=== PATIENT | female | born 1980 | race Hispanic/Latino ===

== ENCOUNTER 2018-04-22 22:41 | Emergency (ER) | payer BC ==
[2018-04-22] MEDS ORDERED: Sodium Chloride 0.9% 1,000 ML IV ONE (23:09)
[2018-04-22 23:21] LABS: BASO # 0.1 K/uL (0.0-0.2); EOS # 0.5 K/uL (0.0-0.7); EOS % 9.3 % (0.0-4.0); HEMOGLOBIN 13.7 g/dL (11.0-16.0); LYMPH # 2.1 K/uL (1.0-4.3); LYMPH % 38.5 % (20.0-40.0); MEAN CELL VOLUME 91.9 fL (81.0-99.0); MEAN CORPUSCULAR HGB CONC 34.8 g/dL (33.0-37.0); MEAN PLATELET VOLUME 10.1 fL (7.2-11.7); MONO # 0.5 K/uL (0.0-0.8); MONO % 8.6 % (0.0-10.0); NEUT # 2.3 K/uL (1.8-7.0); NEUT % 42.6 % (50.0-75.0); NRBC % 0.1 % (0.0-2.0); RBC 4.29 Mil/uL (3.80-5.20); RED CELL DISTRIBUTION WIDTH 12.3 % (11.5-14.5); WHITE BLOOD COUNT 5.4 K/uL (4.8-10.8)
[2018-04-22 23:29] LABS: INR 0.9; PROTHROMBIN TIME 10.1 SECONDS (9.7-12.2)
[2018-04-22] MEDS ORDERED: Sodium Chloride 0.9% 1,000 ML ONE (23:29)
[2018-04-22 23:33] LABS: GFR NON-AFRICAN AMERICAN > 60
[2018-04-22 23:36] LABS: ALB/GLOB RATIO 1.3 (1.0-2.1); ALBUMIN 3.9 g/dL (3.5-5.0); ALT/SGPT 28 U/L (9-52); AST/SGOT 47 U/L (14-36); BLOOD UREA NITROGEN 13 mg/dL (7-17)
[2018-04-22 23:36] LABS: SQUAMOUS EPITHIAL 8 /hpf (0-5); URINE AMORPHOUS SEDIMENT OCC /ul (<OCC); URINE BACTERIA RARE (<OCC); URINE BILIRUBIN NEGATIVE (NEGATIVE); URINE BLOOD NEGATIVE (NEGATIVE); URINE CLARITY Hazy (Clear); URINE COLOR Yellow (YELLOW); URINE GLUCOSE (UA) NORMAL (Normal); URINE LEUKOCYTE ESTERASE NEG Leu/uL (Negative); URINE PROTEIN NEGATIVE (NEGATIVE); URINE UROBILINOGEN NORMAL mg/dL (0.2-1.0)
[2018-04-22 23:46] LABS: BARBITURATES, UR NEGATIVE (NEGATIVE); BENZODIAZEPINES, UR NEGATIVE (NEGATIVE); OPIATES, UR NEGATIVE (NEGATIVE); PHENCYCLIDINE, UR NEGATIVE (NEGATIVE)
[2018-04-22 23:46] LABS: CK-MB < 0.22 ng/mL (0.0-3.38)
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
[2018-04-23 02:42] VITALS: BP 130/47; PULSE 76; RESP 18; TEMP 98.2; O2SAT 100
--- NOTE | 2018-04-23 09:27 | RAD ---
Date of service: 04/22/2018 PROCEDURE: CHEST RADIOGRAPH, 1 VIEW HISTORY: CP COMPARISON: None available. FINDINGS: LUNGS: Clear. PLEURA: No pneumothorax or pleural fluid seen. CARDIOVASCULAR: Normal. OSSEOUS STRUCTURES: No significant abnormalities. VISUALIZED UPPER ABDOMEN: Normal. OTHER FINDINGS: None. IMPRESSION: No active disease.
--- NOTE | 2018-04-23 10:31 | CT ---
Date of service: 04/22/2018 PROCEDURE: CT HEAD WITHOUT CONTRAST. HISTORY: DIZZINESS, TREMORS, STUTTERING, WEAKNESS COMPARISON: No prior study available comparison. TECHNIQUE: Axial computed tomography images were obtained through the head/brain without intravenous contrast. Radiation dose: Total exam DLP = 882.31 mGy-cm. This CT exam was performed using one or more of the following dose reduction techniques: Automated exposure control, adjustment of the mA and/or kV according to patient size, and/or use of iterative reconstruction technique. FINDINGS: HEMORRHAGE: No acute parenchymal, subarachnoid or extra-axial hemorrhage. BRAIN: Mild chronic periventricular white matter ischemic changes seen extending peripherally into the deep white matter both cerebral hemispheres. Probable dilated perivascular space inferior aspect right basal ganglia No obvious parenchymal nor extra-axial masses or collections seen on this noncontrast study. Mild generalized volume loss. VENTRICLES: No obstructive hydrocephalus. CALVARIUM: There is a small on. No acute calvarial fracture. Small bony protuberant some and/or exostosis seen arising from the latter table right frontal calvarium PARANASAL SINUSES: Minor mucosal thickening both maxillary antra left greater than right Mild mucosal thickening seen within several ethmoid air cells MASTOID AIR CELLS: Unremarkable as visualized. No inflammatory changes. OTHER FINDINGS: None. IMPRESSION: Mild chronic periventricular white matter ischemic changes with suspected chronic lacunar-type infarct left basal ganglia. Probable dilated perivascular space inferior aspect right basal ganglia.
--- NOTE | 2018-04-26 19:21 | CARD ---
APPROVED REPORT Date of service: 04/22/2018 EKG Measurement Heart [id number] <Conclusion> Sinus rhythm with premature supraventricular complexes Otherwise normal ECG
== END 2018-04-23 02:50 | disposition home or self-care (01) ==
LOC: C.ER 22:41
DX: R53.1 Weakness (principal); F98.5 Adult onset fluency disorder; R07.81 Pleurodynia
CPT/HCPCS: 70450; 71045; 80053; 81001; 82550; 82553; 82948; 84443; 84484; 84703; 85025; 85610; 85730; 96360; 96374; 99285; G0480; J1885; J7030

== ENCOUNTER 2018-06-08 22:28 | Emergency (ER) | payer BC ==
[2018-06-08] MEDS ORDERED: Sodium Chloride 0.9% 1,000 ML IV SCH (23:00)
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
[2018-06-08 23:27] LABS: SQUAMOUS EPITHIAL 1 /hpf (0-5); URINE AMORPHOUS SEDIMENT MANY /ul (<OCC); URINE BACTERIA RARE (<OCC); URINE BILIRUBIN NEGATIVE (NEGATIVE); URINE BLOOD NEGATIVE (NEGATIVE); URINE CLARITY Hazy (Clear); URINE COLOR Yellow (YELLOW); URINE GLUCOSE (UA) NORMAL (Normal); URINE LEUKOCYTE ESTERASE NEG Leu/uL (Negative); URINE PROTEIN NEGATIVE (NEGATIVE); URINE UROBILINOGEN NORMAL mg/dL (0.2-1.0)
[2018-06-08 23:53] LABS: BASO # 0.1 K/uL (0.0-0.2); BASO % 1.3 % (0.0-2.0); EOS # 0.6 K/uL (0.0-0.7); EOS % 12.3 % (0.0-4.0); HEMOGLOBIN 12.9 g/dL (11.0-16.0); LYMPH # 2.3 K/uL (1.0-4.3); LYMPH % 45.2 % (20.0-40.0); MEAN CELL VOLUME 92.5 fL (81.0-99.0); MEAN CORPUSCULAR HEMOGLOBIN 31.8 pg (27.0-31.0); MEAN CORPUSCULAR HGB CONC 34.4 g/dL (33.0-37.0); MEAN PLATELET VOLUME 10.2 fL (7.2-11.7); MONO # 0.5 K/uL (0.0-0.8); MONO % 10.6 % (0.0-10.0); NEUT # 1.6 K/uL (1.8-7.0); NEUT % 30.6 % (50.0-75.0); RBC 4.06 Mil/uL (3.80-5.20); RED CELL DISTRIBUTION WIDTH 12.3 % (11.5-14.5); WHITE BLOOD COUNT 5.1 K/uL (4.8-10.8)
[2018-06-09 00:02] LABS: INR 0.9; PROTHROMBIN TIME 10.3 SECONDS (9.7-12.2)
[2018-06-09 00:08] LABS: ALB/GLOB RATIO 1.3 (1.0-2.1); ALBUMIN 3.4 g/dL (3.5-5.0); ALT/SGPT 21 U/L (9-52); AST/SGOT 17 U/L (14-36); BLOOD UREA NITROGEN 13 mg/dL (7-17); CALCIUM 8.8 mg/dl (8.6-10.4); GFR NON-AFRICAN AMERICAN > 60
[2018-06-09 01:49] VITALS: BP 140/86; PULSE 83; RESP 16; TEMP 98.3; O2SAT 97
--- NOTE | 2018-06-09 07:09 | RAD ---
Date of service: 06/08/2018 HISTORY: headache COMPARISON: No prior. FINDINGS: LUNGS: No focal infiltrate or effusion. Bibasilar breast and nipple shadows. PLEURA: No significant pleural effusion identified, no pneumothorax apparent. CARDIOVASCULAR: No atherosclerotic calcification present Normal. OSSEOUS STRUCTURES: No significant abnormalities. VISUALIZED UPPER ABDOMEN: Normal. OTHER FINDINGS: None. IMPRESSION: No focal infiltrate or effusion. Bibasilar breast and nipple shadows.
--- NOTE | 2018-06-09 08:31 | CT ---
Date of service: 06/08/2018 PROCEDURE: CT HEAD WITHOUT CONTRAST. HISTORY: headache COMPARISON: 04/22/2018 TECHNIQUE: Axial computed tomography images were obtained through the head/brain without intravenous contrast. Radiation dose: Total exam DLP = 1127.28 mGy-cm. This CT exam was performed using one or more of the following dose reduction techniques: Automated exposure control, adjustment of the mA and/or kV according to patient size, and/or use of iterative reconstruction technique. FINDINGS: HEMORRHAGE: No intracranial hemorrhage. BRAIN: No mass effect or edema. No atrophy or chronic microvascular ischemic changes. Persistent 6 millimeter right basal ganglia lacunar infarct. VENTRICLES: Unremarkable. No hydrocephalus. CALVARIUM: Small bony protuberance emanating from the right frontal cranium. PARANASAL SINUSES: Unremarkable as visualized. No significant inflammatory changes. MASTOID AIR CELLS: Unremarkable as visualized. No inflammatory changes. OTHER FINDINGS: None. IMPRESSION: No acute intracranial abnormality. Persistent right basal ganglia lacunar infarct. If symptoms persists, consider correlation with MRI. These findings were preliminarily reported at 12:30 a.m. on 06/09/[address] Wenceslao Still from [email or web address].
--- NOTE | 2018-06-12 19:38 | CARD ---
APPROVED REPORT Date of service: 06/09/2018 EKG Measurement Heart [id number] IL 146P70 [id number] <Conclusion> Normal sinus rhythm poss.Anterior infarct, age undetermined Abnormal ECG
== END 2018-06-09 01:53 | disposition home or self-care (01) ==
LOC: C.ER 22:28
DX: G43.909 Migraine, unspecified, not intractable, without status migrainosus (principal)
CPT/HCPCS: 70450; 71045; 80053; 81001; 84484; 85025; 85610; 85730; 86850; 86900; 93005; 99285; J7030